=== PATIENT | female | born 1985 | race Caucasian/White ===

== ENCOUNTER 2017-05-21 10:58 | Day surgery (SDC) | payer SELFPAY, BC ==
[~2017-05-21 10:58] MED LIST: Acetaminophen/HYDROcodone 325-5 MG Tab PO PRN; BACITRACIN IRR SCH; Bupivacaine 0.25% 10 ML SDV INJECT ONE; Bupivacaine 0.25% 10 ML SDV ONE; Gentamicin 40 MG/ML 2 ML Vial ONE; Lactated Ringers 1,000 ML IV SCH; Lidocaine 2% 5 ML SDV ONE; Midazolam 1 MG/ML 2 ML SDV ONE; Propofol 200 MG/20 ML SDV ONE; SODIUM CHLORIDE 0.9% IRR SCH; ceFAZolin 1,000 MG VIAL ONE; ceFAZolin 2 GM in Premix Bag 1 BAG IV ONE; fentaNYL 100 MCG/2 ML SDV ONE
--- NOTE | 2017-05-21 12:02 | PCM.PREANE ---
Preanesthetic Assessment - Anesthesia/Transfusion/Family Hx Anesthesia History: Prior Anesthesia Without Reaction Family History of Anesthesia Reaction: No Transfusion History: No Prior Transfusion(s) Intubation History: Unknown - Review of Systems General: No Symptoms Pulmonary: No Symptoms Cardiovascular: No Symptoms Gastrointestinal: No Symptoms Neurological: No Symptoms Other: Reports: None - Physical Assessment O2 Sat by Pulse Oximetry: 100 Respiratory Rate: 16 Vital Signs: Last Vital Signs Temp 36.6 C 05/21/17 11:26 Pulse 66 05/21/17 11:26 Resp 16 05/21/17 11:26 BP 120/59 L 05/21/17 11:26 Pulse Ox 100 05/21/17 11:26 Height: 1.57 m Weight: 58.513 kg ASA Class: 2 Mental Status: Alert & Oriented x3 Airway Class: Mallampati = 2 Dentition: Reports: Normal Dentition Thyro-Mental Finger Breadths: 3 Mouth Opening Finger Breadths: 3 ROM/Head Extension: Full Lungs: Clear to Auscultation, Normal Respiratory Effort Cardiovascular: Regular Rate, Regular Rhythm - Lab Values: Laboratory Last Values Urine HCG, Qual NEGATIVE (NEGATIVE) 05/21/17 11:03 - Allergies Allergies/Adverse Reactions: Allergies Allergy/AdvReac Type Severity Reaction Status Date / Time No Known Allergies Allergy Verified 06/10/14 20:02 - Blood Blood Available: No - Anesthesia Plan Pre-Op Medication Ordered: None - Acknowledgements Anesthesia Type Planned: General Anesthesia Pt an Appropriate Candidate for the Planned Anesthesia: Yes Alternatives and Risks of Anesthesia Discussed w Pt/Guardian: Yes Pt/Guardian Understands and Agrees with Anesthesia Plan: Yes PreAnesthesia Questionnaire HEENT History: Reports: Other (See Below) Other HEENT History: wears glasses/contacts Cardiovascular History: Reports: Heart Murmur, Other (See Below) Other Cardiovascular History: benign murmur Genitourinary History: Reports: None 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 of neck cyst at age 1 ( thyro-glossal cyst ?)) Female Surgical History: Reports: D&C Endocrine Surgical History: Reports: Other (See Below) Other Endocrine Surgeries/Procedures: eliu sympathectomy for hyperhydrosis - SUBSTANCE USE Smoking Status *Q: Never Smoker Recreational Drug Use History: No - HOME MEDS Home Medications: Home Meds FLUoxetine HCl [Fluoxetine HCl] 40 mg PO DAILY 05/16/17 [History] - CURRENT (IN HOUSE) MEDS Current Meds: Current Medications Hydrocodone Bitart/Acetaminophen ([place] 325-5 Mg) 1 tab PO Q4H PRN PRN Reason: Pain Bacitracin 50,000 units/ (Sodium Chloride) 1,000 mls @ 71.99 mls/hr IRR ONETIME RAKESH PRN Reason: 1 UNITS/SEC Lactated Ringer's (Ringers, Lactated) 1,000 mls @ 125 mls/hr IV ASDIRECTED RAKESH Last Admin: 05/21/17 11:28 Dose: 125 mls/hr Discontinued Medications Bupivacaine HCl (Sensorcaine-Mpf 0.25%) 30 ml INJECT ONETIME ONE Stop: 05/21/17 09:01 Bupivacaine HCl (Sensorcaine-Mpf 0.25%) Confirm Administered Dose 20 ml .ROUTE .STK-MED ONE Stop: 05/21/17 07:29 Cefazolin Sodium (Ancef) 2,000 mg .XX ONETIME ONE Stop: 05/21/17 09:01 Fentanyl (Sublimaze) Confirm Administered Dose 100 mcg .ROUTE .STK-MED ONE Stop: 05/21/17 08:49 Fentanyl (Sublimaze) Confirm Administered Dose 100 mcg .ROUTE .STK-MED ONE Stop: 05/21/17 10:20 Gentamicin Sulfate (Gentamicin) 80 mg .XX ONETIME ONE Stop: 05/21/17 09:01 Cefazolin Sodium/Dextrose 2 gm (/ Premix) 50 mls @ 100 mls/hr IV ONETIME ONE Stop: 05/20/17 21:43 Lidocaine (Xylocaine-Mpf 2%) Confirm Administered Dose 5 ml .ROUTE .STK-MED ONE Stop: 05/21/17 08:49 Midazolam HCl (Versed 1 Mg/Ml) Confirm Administered Dose 2 mg .ROUTE .STK-MED ONE Stop: 05/21/17 08:49 Propofol (Diprivan 20 Ml) Confirm Administered Dose 400 mg .ROUTE .STK-MED ONE Stop: 05/21/17 08:49
[2017-05-21] MEDS ORDERED: Gentamicin 40 MG/ML 2 ML Vial ONE (12:34)
[2017-05-21] MEDS ORDERED: ceFAZolin 1 GM Vial ONE ×2 (12:34→12:41)
[2017-05-21] MEDS ORDERED: EPINEPHrine 1 MG/ML SDV ONE (12:35)
[2017-05-21] MEDS ORDERED: Bupivacaine 0.25% 10 ML SDV ONE (12:46)
[2017-05-21] MEDS ORDERED: Rocuronium 10 MG/ML 10 ML Syringe ONE (12:46)
[2017-05-21] MEDS ORDERED: Dexamethasone 4 MG/ML 5 ML MDV ONE (12:46)
[2017-05-21] MEDS ORDERED: diphenhydrAMINE 50 MG/ML SDV ONE (12:46)
[2017-05-21] MEDS ORDERED: Ondansetron 4 MG/2 ML SDV ONE (12:46)
[2017-05-21] MEDS ORDERED: Scopolamine 1.5 MG Transdermal Patch ONE (13:02)
[2017-05-21] MEDS ORDERED: HYDROmorphone 2 MG/ML Syringe ONE (13:14)
[2017-05-21] MEDS ORDERED: fentaNYL 100 MCG/2 ML SDV IVPUSH PRN (13:45)
--- NOTE | 2017-05-21 15:28 | PCM.POSTAN ---
POST ANESTHESIA ASSESSMENT - MENTAL STATUS Mental Status: Alert, Oriented - RESPIRATORY Respiratory Status: Respiratory Rate WNL, Airway Patent, O2 Saturation Stable - CARDIOVASCULAR CV Status: Pulse Rate WNL, Blood Pressure Stable - GASTROINTESTINAL GI Status: No Symptoms - PAIN Pain Score: 3 - POST OP HYDRATION Hydration Status: Adequate & Stable - OBSERVATIONS Free Text/Narrative:: no anesthesia problems
[2017-05-21 17:01] VITALS: BP 121/64
--- NOTE | 2017-05-21 20:11 | PCM.OPNOTE ---
- General Post-Op/Procedure Note Date of Surgery/Procedure: 05/21/17 Operative Procedure(s): bilateral silicone submuscular breast augmentation Pre Op Diagnosis: cosmetic Post-Op Diagnosis: Same Anesthesia Technique: Local, MAC Primary Surgeon: Amada Avila Loom Mechanic: Beatriz Tate Complications: None Condition: Good Free Text/Narrative:: Intake & Output 05/21/17 05/21/17 05/21/17 07:59 15:59 23:59 Intake Total 2100 Balance 2100
--- NOTE | 2017-05-29 20:45 | OR ---
SURGEON: VERÓNICA BOYER MD DATE OF PROCEDURE: 05/21/2017 PREOPERATIVE DIAGNOSIS: Cosmetic. POSTOPERATIVE DIAGNOSIS: Cosmetic. PROCEDURE: Bilateral silicone submuscular breast augmentation. ANESTHESIA: Local with general ET tube. PAYROLL HUMAN RESOURCES ASSISTANT: LILLIE Lamb. INDICATIONS: Ms. Mccormack is a 31-year-old female seen today in desire for bilateral breast augmentation. She decided on 445 mL silicone submuscular implants. Risks and benefits were discussed including but not limited to, bleeding, infection, damage to underlying or overlying structures, possible need for future interventions, and possible scarring. PROCEDURE IN DETAIL: After informed consent was obtained and placed on the chart, the patient was brought to the operating theater and laid in the supine position. After adequate local MAC anesthesia was obtained, the area was prepped and draped and a time-out was completed to confirm side and site. Attention was then paid to the inframammary fold incision marked at approximately the base width of the implant away from the nipple-areolar complex. This is approximately 5 cm taking care to stay lateral to the nipple- areolar complex. Once adequately marked, attention was paid using a 15 blade through the skin and subcutaneous tissues and then retraction using Bovie electrocautery to reach the lateral aspect of the pectoralis muscle. The inferior pectoralis muscle was then transected and the remainder of the pectoralis muscle was elevated. Once this was completed, the area was copiously irrigated and meticulous hemostasis was obtained. Epinephrine-soaked laps were then placed into the pocket and allowed to sit. While sitting, attention was paid to meticulous dissection on the opposite side in a symmetric fashion. Epi laps were placed over here and then we returned to the original right side to complete dissection. The epinephrine laps were removed and confirmed complete removal. Attention was then paid to meticulous hemostasis and 3-0 PDS sutures were used to secure the inframammary fold in lateral aspect of the margin of the internal pocket. Once this was completed, attention was then paid to copious irrigation with normal saline and then triple antibiotic solution. Once adequately irrigated, a Ramirez funnel was then used to place the Natrelle Inspira [id number] mL implants. IMPLANT INFORMATION: Serial number is [id number] Left and [id number] Right. Material number is [id number]. Brand is Natrelle Inspira implant. Once this symmetric procedure had been completed on both the right and left breast, the patient was sat up into the supine position and symmetry was appreciated. The patient was laid back down and deep 3-0 Monocryl stitches were used to close the fascia layer, 3-0 Monocryl stitches to close the dermis, and a running 4-0 subcuticular for the skin. Once adequately closed, the wounds were dressed with Steri-Strips. The patient tolerated the procedure well. All counts and needles were correct at the end of the case. FOLLOWUP INSTRUCTIONS: The patient will see us in clinic tomorrow or sooner if any problems, questions, or concerns. She was given a prescription for pain control and a muscle relaxer. She will call with any issues prior. HEGGTHE / ODALIS /[id number] MTDD
== END 2017-05-21 16:55 | disposition home or self-care (01) ==
LOC: MW.SDS 10:58
PROVIDERS: ATTEND Plastic Surgery
DX: Z41.1 Encounter for cosmetic surgery (principal); F41.9 Anxiety disorder, unspecified; F32.9 Major depressive disorder, single episode, unspecified; Z79.899 Other long term (current) drug therapy
CPT/HCPCS: 19325; 81025; A9270; C1789; J0171; J0690; J1100; J1170; J1200; J1580; J2250; J2405; J3010; J7120; 00402; J2704

== ENCOUNTER 2019-07-26 07:45 | Day surgery (SDC) | payer OTHER, BC ==
[2019-07-26 06:47] LABS: BLOOD UREA NITROGEN,BUN 15 mg/dL (7.0-18.0); CARBON DIOXIDE,CO2 28.1 mmol/L (21.0-32.0); CHLORIDE,CL 104 mmol/L (98-107); GLUCOSE RANDOM 147 mg/dL (74-106); POTASSIUM,K 3.6 mmol/L (3.5-5.1); SODIUM,NA 142 mmol/L (136-145)
[~2019-07-26 07:45] MED LIST changes: -Acetaminophen/HYDROcodone 325-5 MG Tab PO PRN; -BACITRACIN IRR SCH; -Bupivacaine 0.25% 10 ML SDV INJECT ONE; -Bupivacaine 0.25% 10 ML SDV ONE; -Gentamicin 40 MG/ML 2 ML Vial ONE; -Lactated Ringers 1,000 ML IV SCH; -Lidocaine 2% 5 ML SDV ONE; -Midazolam 1 MG/ML 2 ML SDV ONE; -Propofol 200 MG/20 ML SDV ONE; -SODIUM CHLORIDE 0.9% IRR SCH; +Scopolamine 1.5 MG Transdermal Patch TRDERM PRN; +Sodium Chloride 0.9% 10 ML SDV IV PRN; +Sodium Chloride 0.9% 10 ML Syringe FLUSH PRN; +Sodium Chloride 0.9% 2.5 ML Syringe FLUSH PRN; -ceFAZolin 1,000 MG VIAL ONE; -ceFAZolin 2 GM in Premix Bag 1 BAG IV ONE; -fentaNYL 100 MCG/2 ML SDV ONE
[2019-07-26] MEDS ORDERED: Methylene Blue 50 MG/10 ML Ampule ONE (07:46)
[2019-07-26] MEDS ORDERED: Bupivacaine 0.5% 30 ML SDV ONE (07:46)
[2019-07-26] MEDS ORDERED: Bupivacaine 0.25% 10 ML SDV ONE (07:46)
[2019-07-26] MEDS: Lactated Ringers 1,000 ML IV SCH ×2 (08:03→17:05)
[2019-07-26] MEDS ORDERED: Rocuronium 100 MG/10 ML Syringe ONE (08:08)
[2019-07-26] MEDS ORDERED: Ondansetron 4 MG/2 ML SDV ONE (08:08)
[2019-07-26] MEDS ORDERED: fentaNYL 250 MCG/5 ML SDV ONE (08:08)
[2019-07-26] MEDS ORDERED: Lidocaine 2% 5 ML SDV ONE (08:08)
[2019-07-26] MEDS ORDERED: Propofol 200 MG/20 ML SDV ONE (08:08)
[2019-07-26] MEDS ORDERED: Midazolam 1 MG/ML 2 ML SDV ONE (08:08)
[2019-07-26] MEDS ORDERED: Dexamethasone 4 MG/ML 5 ML MDV ONE (08:10)
[2019-07-26] MEDS ORDERED: Acetaminophen 1,000 MG in Premix Bag 1 BAG IV SCH (08:30)
--- NOTE | 2019-07-26 08:46 | PCM.PREANE ---
Preanesthetic Assessment - Anesthesia/Transfusion/Family Hx Anesthesia History: Prior Anesthesia Without Reaction (PONV) Family History of Anesthesia Reaction: No Transfusion History: No Prior Transfusion(s) Intubation History: Unknown - Review of Systems General: No Symptoms Pulmonary: No Symptoms Cardiovascular: No Symptoms Gastrointestinal: No Symptoms Neurological: No Symptoms Other: Reports: None - Physical Assessment NPO Status Date: 07/25/19 NPO Status Time: 23:00 Vital Signs: Last Vital Signs Temp 97.0 F 07/26/19 08:03 Pulse 63 07/26/19 08:03 Resp 16 07/26/19 08:03 BP 124/61 07/26/19 08:03 Pulse Ox 100 07/26/19 08:03 Height: 5 ft 2 in Weight: 63.503 kg ASA Class: 2 Mental Status: Alert & Oriented x3 Airway Class: Mallampati = 2 Dentition: Reports: Normal Dentition Thyro-Mental Finger Breadths: 3 Mouth Opening Finger Breadths: 3 ROM/Head Extension: Full Lungs: Clear to Auscultation, Normal Respiratory Effort Cardiovascular: Regular Rate, Regular Rhythm - Lab Values: Laboratory Last Values WBC 7.15 K/uL (4.0-11.0) 07/25/19 17:19 RBC 4.62 M/uL (4.30-5.90) 07/25/19 17:19 Hgb 13.6 g/dL (12.0-16.0) 07/25/19 17:19 Hct 40.6 % (36.0-46.0) 07/25/19 17:19 MCV 87.9 fL (80.0-98.0) 07/25/19 17:19 MCH 29.4 pg (27.0-32.0) 07/25/19 17:19 MCHC 33.5 g/dL (31.0-37.0) 07/25/19 17:19 RDW Std Deviation 44.6 fl (28.0-62.0) 07/25/19 17:19 RDW Coeff of Ulises 14 % (11.0-15.0) 07/25/19 17:19 Plt Count 241 K/uL (150-400) 07/25/19 17:19 MPV 11.20 fL (7.40-12.00) 07/25/19 17:19 Nucleated RBC % 0.0 /100WBC 07/25/19 17:19 Nucleated RBCs # 0 K/uL 07/25/19 17:19 Sodium 142 mmol/L (136-145) 07/25/19 17:19 Potassium 3.6 mmol/L (3.5-5.1) 07/25/19 17:19 Chloride 104 mmol/L (98-107) 07/25/19 17:19 Carbon Dioxide 28.1 mmol/L (21.0-32.0) 07/25/19 17:19 BUN 15 mg/dL (7.0-18.0) 07/25/19 17:19 Creatinine 0.8 mg/dL (0.6-1.0) 07/25/19 17:19 Est Cr Clr Drug Dosing 78.37 mL/min 07/25/19 17:19 Estimated GFR (MDRD) > 60.0 ml/min 07/25/19 17:19 Glucose 147 mg/dL (74-106) H 07/25/19 17:19 Calcium 8.7 mg/dL (8.5-10.1) 07/25/19 17:19 HCG, Qual NEGATIVE (NEG) 07/25/19 17:19 Blood Type A POSITIVE 07/25/19 17:19 Antibody Screen NEGATIVE 07/25/19 17:19 - Allergies Allergies/Adverse Reactions: Allergies Allergy/AdvReac Type Severity Reaction Status Date / Time No Known Allergies Allergy Verified 07/21/19 10:34 - Blood Blood Available: Yes - Acknowledgements Anesthesia Type Planned: General Anesthesia Pt an Appropriate Candidate for the Planned Anesthesia: Yes Alternatives and Risks of Anesthesia Discussed w Pt/Guardian: Yes Pt/Guardian Understands and Agrees with Anesthesia Plan: Yes PreAnesthesia Questionnaire HEENT History: Reports: Other (See Below) Other HEENT History: wears glasses/contacts Cardiovascular History: Reports: Heart Murmur Other Cardiovascular History: hx of benign murmur- Echo done in 2001, was cleared by Cardiology Respiratory History: Reports: None Gastrointestinal History: Reports: None Genitourinary History: Reports: Other (See Below) Other Genitourinary History: pelvic Organ Prolapse, urinary retention RECOOPERER History: Reports: Ectopic , LMP (Approximate): Other (See Below) (HCG - negative) Musculoskeletal History: Reports: Fracture Other Musculoskeletal History: hx of fx clavicle Neurological History: Reports: Other (See Below) Other Neuro History: hx of motion sickness Psychiatric History: Reports: Anxiety, Depression Endocrine/Metabolic History: Reports: None Hematologic History: Reports: None Immunologic History: Reports: None Oncologic (Cancer) History: Reports: None Dermatologic History: Reports: None - Infectious Disease History Infectious Disease History: Reports: None - Past Surgical History Female Surgical History: Reports: Breast Implant, D&C Musculoskeletal Surgical History: Reports: Other (See Below) Other Musculoskeletal Surgeries/Procedures:: right collar lumpectomy, Bilateral Sympathectomy for Hyper- Hydrosis - SUBSTANCE USE Smoking Status *Q: Never Smoker Recreational Drug Use History: No - HOME MEDS Home Medications: Home Meds FLUoxetine HCl [Fluoxetine HCl] 40 mg PO DAILY 05/16/17 [History] Modafinil [Provigil] 200 mg PO QAM 07/21/19 [History] - CURRENT (IN HOUSE) MEDS Current Meds: Current Medications Lactated Ringer's (Ringers, Lactated) 1,000 mls @ 100 mls/hr IV ASDIRECTED RAKESH Last Admin: 07/26/19 08:03 Dose: 100 mls/hr Scopolamine (Transderm-Scop) 1.5 mg TRDERM Q72H PRN PRN Reason: Nausea/Vomiting Sodium Chloride (Saline Flush) 10 ml FLUSH ASDIRECTED PRN PRN Reason: Keep Vein Open Sodium Chloride (Saline Flush) 2.5 ml FLUSH ASDIRECTED PRN PRN Reason: Keep Vein Open Sodium Chloride (Normal Saline) 10 ml IV ASDIRECTED PRN PRN Reason: IV Use Discontinued Medications Bupivacaine HCl (Sensorcaine-Mpf 0.25%) Confirm Administered Dose 20 ml .ROUTE .STK-MED ONE Stop: 07/26/19 07:47 Bupivacaine HCl (Marcaine 0.5%) Confirm Administered Dose 30 ml .ROUTE .STK-MED ONE Stop: 07/26/19 07:47 Dexamethasone (Dexamethasone) Confirm Administered Dose 20 mg .ROUTE .STK-MED ONE Stop: 07/26/19 08:11 Fentanyl (Sublimaze) Confirm Administered Dose 250 mcg .ROUTE .STK-MED ONE Stop: 07/26/19 08:09 Acetaminophen 1,000 mg/ Premix 100 mls @ 400 mls/hr IV ONETIME RAKESH Stop: 07/26/19 08:44 Acetaminophen (Ofirmev) Confirm Administered Dose 100 mls @ as directed .ROUTE .STK-MED ONE Stop: 07/26/19 08:16 Lidocaine (Xylocaine-Mpf 2%) Confirm Administered Dose 5 ml .ROUTE .STK-MED ONE Stop: 07/26/19 08:09 Methylene Blue (Provayblue) Confirm Administered Dose 50 mg .ROUTE .STK-MED ONE Stop: 07/26/19 07:47 Midazolam HCl (Versed 1 Mg/Ml) Confirm Administered Dose 2 mg .ROUTE .STK-MED ONE Stop: 07/26/19 08:09 Ondansetron HCl (Zofran) Confirm Administered Dose 4 mg .ROUTE .STK-MED ONE Stop: 07/26/19 08:09 Propofol (Diprivan 20 Ml) Confirm Administered Dose 200 mg .ROUTE .STK-MED ONE Stop: 07/26/19 08:09 Rocuronium Simpson (Zemuron) Confirm Administered Dose 100 mg .ROUTE .STK-MED ONE Stop: 07/26/19 08:09 Scopolamine (Transderm-Scop) 1.5 mg TRDERM .ONCE PRN PRN Reason: Post Op Nausea
[2019-07-26] MEDS ORDERED: Fluorescein 5 ML Vial ONE (08:59)
[2019-07-26] MEDS ORDERED: ceFAZolin 1 GM Vial ONE (09:26)
[2019-07-26] MEDS ORDERED: diphenhydrAMINE 50 MG/ML SDV ONE (09:31)
[2019-07-26] MEDS ORDERED: HYDROmorphone 2 MG/ML Syringe ONE (09:36)
[2019-07-26] MEDS ORDERED: Furosemide 40 MG/4 ML VIAL ONE (09:42)
[2019-07-26] MEDS ORDERED: Promethazine 12.5 MG Supp RECTAL PRN (09:56)
[2019-07-26] MEDS ORDERED: Atropine 0.1 MG/ML 10 ML Syringe IVPUSH PRN ×2 (09:57)
[2019-07-26] MEDS ORDERED: EPINEPHrine 1:10,000 1 MG/10 ML Syringe IVPUSH PRN (09:57)
[2019-07-26] MEDS ORDERED: 50% Dextrose in Water 50 ML Syringe IVPUSH PRN (09:57)
[2019-07-26] MEDS ORDERED: Naloxone 0.4 MG/ML Syringe IVPUSH PRN (09:57)
[2019-07-26] MEDS ORDERED: Ketorolac 30 MG/ML SDV ONE (10:33)
[2019-07-26] MEDS: Ketorolac 30 MG/ML SDV IVPUSH ONE ×2 (10:52→18:50)
[2019-07-26] MEDS ORDERED: Acetaminophen/oxyCODONE 325-5 MG Tab PO PRN (11:31)
[2019-07-26] MEDS ORDERED: Morphine 4 MG/ML Syringe IVPUSH PRN (11:31)
[2019-07-26] MEDS ORDERED: Ondansetron 4 MG/2 ML SDV IVPUSH PRN (11:31)
[2019-07-26] MEDS ORDERED: Promethazine 25 MG/ML SDV IM PRN (11:31)
--- NOTE | 2019-07-26 11:31 | PCM.OPNOTE ---
- General Post-Op/Procedure Note Date of Surgery/Procedure: 07/26/19 Operative Procedure(s): total vaginal hysterectomy, anterior colporrhaphy, culdoplasty, perineorrhaphy, cystoscopy Findings: 3rd degree uterine prolapse, 3rd degree cystocele, gaping introitus, normal appearing tubes and ovaries, on cystoscopy no evidence of trauma to the bladder mucosa, normal flow, bright green urine after iv fluoroscein from bilateral ureteral orifices. Pre Op Diagnosis: incomplete uterovaginal prolapse Post-Op Diagnosis: Same Anesthesia Technique: General ET Tube Primary Surgeon: Vanessa Cook Secondary Surgeon: Janett Wilder Anesthesia Provider: Juan Wheatley Social Work Job Titles: Ashlie Milan Pathology: uterus, vaginal mucosa Fluid Replacement, Intraop: 2,000 Output, Urine Amount: 45 EBL in mLs: 100 Drain/Tube Comments:: vaginal packing in place, townsend catheter Complications: None Known Condition: Good
[2019-07-26] MEDS: fentaNYL 100 MCG/2 ML SDV IVPUSH PRN ×2 (11:58→12:05)
--- NOTE | 2019-07-26 12:20 | PCM.POSTAN ---
POST ANESTHESIA ASSESSMENT - MENTAL STATUS Mental Status: Alert, Oriented - VITAL SIGNS Vital Signs: Last Vital Signs Temp 37.6 C 07/26/19 10:57 Pulse 65 07/26/19 12:14 Resp 12 07/26/19 12:14 BP 110/47 L 07/26/19 12:14 Pulse Ox 94 L 07/26/19 12:14 - RESPIRATORY Respiratory Status: Respiratory Rate WNL, Airway Patent, O2 Saturation Stable - CARDIOVASCULAR CV Status: Pulse Rate WNL, Blood Pressure Stable - GASTROINTESTINAL GI Status: No Symptoms - PAIN Pain Score: 2 - POST OP HYDRATION Hydration Status: Adequate & Stable - OBSERVATIONS Free Text/Narrative:: No anesthesia problems
--- NOTE | 2019-07-26 12:37 | OR ---
SURGEON: Vanessa Cook M.D. DATE OF PROCEDURE: 07/26/2019 PREOPERATIVE DIAGNOSIS: Incomplete uterovaginal prolapse. POSTOPERATIVE DIAGNOSIS: Incomplete uterovaginal prolapse. PROCEDURE: Total vaginal hysterectomy with anterior colporrhaphy, culdoplasty, perineorrhaphy, and cystoscopy. PRIMARY SURGEON: Vanessa Cook MD. EXTENSION SERVICE AGENT: Janett Wilder MD. ANESTHESIA: General endotracheal. FLUIDS: 2000 mL of crystalloid. ESTIMATED BLOOD LOSS: 100 mL. URINE OUTPUT: 45 mL. FINDINGS: Third-degree uterine prolapse, third-degree cystocele with gaping introitus. Upon cystoscopy, there was no evidence of any trauma to the bladder mucosa. There was copious flow of bright green urine from bilateral ureteral orifices after IV fluorescein was given. COMPLICATIONS: None known. DISPOSITION: Stable to recovery. PATHOLOGY SPECIMENS: Vaginal mucosa and uterus. BRIEF HISTORY: This is a 33-year-old female. She has had worsening symptoms of pelvic pressure, bulge from her vagina, difficulty retaining a tampon, and dyspareunia. Upon examination, she had a third-degree uterine prolapse, third-degree cystocele, gaping introitus. I recommended proceeding with a total vaginal hysterectomy with anterior colporrhaphy, perineorrhaphy, and cystoscopy with consideration of either a vaginal vault suspension or culdoplasty based on findings at the time of surgery. Surgical risks were discussed including bleeding; infection; injury to bowel, bladder, blood vessels, ureters, or other organs; risk of thromboembolic event, risk of recurrence of approximately 30%; risk of dyspareunia. Understanding all these risks, she does desire to proceed. DESCRIPTION OF PROCEDURE: With the patient in dorsal lithotomy position, under adequate general endotracheal anesthesia, the abdomen, perineum, and vagina were prepped with Betadine and draped in the usual fashion for vaginal surgery. SCDs were in place. Ramesh catheter had been placed and Ancef 1 g had been given IV. After an appropriate time-out was held, bimanual examination revealed third-degree uterine prolapse with third-degree cystocele. A weighted speculum was placed posteriorly. The patient was placed in Trendelenburg position. The anterior vaginal wall was retracted. The cervix was grasped with a Isaac tenaculum and circumscribed using electrocautery. The anterior cul-de-sac was entered sharply. A finger was placed into the peritoneal cavity. There was no evidence of any trauma. Therefore, the right angle retractor was placed and the anterior cul-de-sac or the posterior cul-de-sac was entered sharply and a Tyson-Auvard speculum was placed posteriorly. The uterosacral ligaments were then doubly clamped, cut, and ligated using a simple tie followed by Nicolas ligature of 2-0 Polysorb. The cardinal ligament complex was then doubly clamped, cut, and ligated followed by the utero-ovarian ligament being doubly clamped, cut, and ligated and retained for evaluation for hemostasis. The uterus was removed vaginally. The utero-ovarian pedicles were inspected and were hemostatic. The tubes and ovaries appeared normal. They were left in situ. These retained pedicles were then trimmed. The anterior vaginal wall was then grasped at the cuff with Allis clamps. Hydrodissection was performed and Metzenbaum scissors were used to incise the anterior vaginal mucosa in the midline up to approximately 3 cm from the urethral meatus. Sharp and blunt dissections were utilized to dissect the muscularis layer free from the overlying vaginal mucosa. The muscularis layer was then reapproximated in the midline using a running mattress suture of 0 Polysorb. The vagina was slightly trimmed and reapproximated using a running lock suture of 0 Polysorb. The uterosacral ligaments were then inspected. Cyndi clamps were placed at the point of the uterosacral ligaments, which were both palpable down to the level of the vagina. Therefore, I felt that a culdoplasty would be adequate. The retained uterosacral ligament ligatures were then utilized to incorporate the vaginal apices bilaterally along with the posterior cul-de-sac, and on the right and the left, they were tied in the midline. This being completed, a final inspection for hemostasis revealed a small area of bleeding below the uterosacral ligament on the vaginal cuff on the left side and a [id number] suture of 0 Polysorb was placed for hemostasis. This being hemostatic, the remaining vaginal cuff was closed with a continuation of the running lock suture of 0 Polysorb. Cystoscopy was then performed after IV Lasix and fluorescein had been given. There was excellent visualization of the bladder. There was no evidence of any trauma. Bilateral ureteral orifices were identified and there was copious flow of bright green urine. This being completed, the cystoscope was removed and the Ramesh catheter was replaced. Attention was then taken to the perineum where a triangular incision was made in the perineum with a scalpel. The skin was undermined using Metzenbaum scissors up to the level of the introitus and then a small triangular incision was made just above the introitus. This was then closed with a running lock suture for the vaginal mucosa out to the level of the introitus. This same suture of 2-0 Polysorb was then utilized to reapproximate the deep tissue and finally a running subcuticular suture of 3-0 Monocryl was utilized to reapproximate the skin. The vagina was then inspected, was hemostatic. Ramesh catheter had been replaced and the vaginal packing was placed. Final sponge, needle, and instrument counts were reported as correct. There were no known complications. The patient was transferred to recovery in good condition. ISAI JACOBO /[id number]
[2019-07-26] MEDS: Ketorolac 30 MG/ML SDV IVPUSH SCH ×3 (12:48→23:36)
[2019-07-26] MEDS: Acetaminophen/oxyCODONE 325-5 MG Tab PO PRN ×2 (16:30→20:16)
[2019-07-27] MEDS: Acetaminophen/oxyCODONE 325-5 MG Tab PO PRN ×2 (04:26→08:44)
[2019-07-27] MEDS: Ketorolac 30 MG/ML SDV IVPUSH SCH (05:40)
[2019-07-27 06:00] LABS: BLOOD UREA NITROGEN,BUN 16 mg/dL (7.0-18.0); CARBON DIOXIDE,CO2 30.1 mmol/L (21.0-32.0); CHLORIDE,CL 107 mmol/L (98-107); GLUCOSE RANDOM 108 mg/dL (74-106); POTASSIUM,K 4.2 mmol/L (3.5-5.1); SODIUM,NA 142 mmol/L (136-145)
--- NOTE | 2019-07-27 08:19 | PCM.SURGPN ---
- General Info Date of Service: 07/27/19 Date of Surgery/Procedure: 07/26/19 POD#: 1 Post-Op Diagnosis: Incomplete uterovaginal prolapse Functional Status: Reports: Pain Controlled, Tolerating Diet, Ambulating, Urinating, Other (packing removed this am. ) - Review of Systems General: Reports: No Symptoms HEENT: Reports: No Symptoms Pulmonary: Reports: No Symptoms Cardiovascular: Reports: No Symptoms Gastrointestinal: Reports: No Symptoms Genitourinary: Reports: No Symptoms Musculoskeletal: Reports: No Symptoms Skin: Reports: No Symptoms Neurological: Reports: No Symptoms Psychiatric: Reports: No Symptoms - Patient Data Vitals - Most Recent: Last Vital Signs Temp 36.8 C 07/27/19 04:59 Pulse 64 07/27/19 04:59 Resp 16 07/27/19 04:59 BP 103/57 L 07/27/19 04:59 Pulse Ox 97 07/27/19 04:59 Weight - Most Recent: 63.503 kg I&O - Last 24 Hours: Intake & Output 07/26/19 07/27/19 07/27/19 22:59 06:59 14:59 Intake Total 1150 Output Total 150 1125 Balance -150 25 Lab Results Last 24 Hrs: Laboratory Results - last 24 hr 07/27/19 07/27/19 Range/Units 05:37 05:37 WBC 9.89 (4.0-11.0) K/uL RBC 3.68 L (4.30-5.90) M/uL Hgb 10.6 L (12.0-16.0) g/dL Hct 32.8 L (36.0-46.0) % MCV 89.1 (80.0-98.0) fL MCH 28.8 (27.0-32.0) pg MCHC 32.3 (31.0-37.0) g/dL RDW Std Deviation 45.5 (28.0-62.0) fl RDW Coeff of Ulises 14 (11.0-15.0) % Plt Count 176 (150-400) K/uL MPV 11.20 (7.40-12.00) fL Neut % (Auto) 73.7 (48.0-80.0) % Lymph % (Auto) 18.2 (16.0-40.0) % [place] % (Auto) 7.5 (0.0-15.0) % Eos % (Auto) 0.4 (0.0-7.0) % Baso % (Auto) 0.2 (0.0-1.5) % Neut # (Auto) 7.3 H (1.4-5.7) K/uL Lymph # (Auto) 1.8 (0.6-2.4) K/uL [place] # (Auto) 0.7 (0.0-0.8) K/uL Eos # (Auto) 0.0 (0.0-0.7) K/uL Baso # (Auto) 0.0 (0.0-0.1) K/uL Nucleated RBC % 0.0 /100WBC Nucleated RBCs # 0 K/uL Sodium 142 (136-145) mmol/L Potassium 4.2 (3.5-5.1) mmol/L Chloride 107 (98-107) mmol/L Carbon Dioxide 30.1 (21.0-32.0) mmol/L BUN 16 (7.0-18.0) mg/dL Creatinine 0.9 (0.6-1.0) mg/dL Est Cr Clr Drug Dosing 69.66 mL/min Estimated GFR (MDRD) > 60.0 ml/min Glucose 108 H (74-106) mg/dL Calcium 8.0 L (8.5-10.1) mg/dL Med Orders - Current: Current Medications Atropine Sulfate (Atropine 0.1 Mg/Ml) 0.5 mg IVPUSH ASDIRECTED PRN PRN Reason: Hypo-perfusion Atropine Sulfate (Atropine 0.1 Mg/Ml) 1 mg IVPUSH ASDIRECTED PRN PRN Reason: Hypo-Perfusion Dextrose/Water (Dextrose 50% In Water) 50 ml IVPUSH ASDIRECTED PRN PRN Reason: Hypoglycemia Epinephrine HCl (Epinephrine 1:10,000) 1 mg IVPUSH ASDIRECTED PRN PRN Reason: ACLS Guidelines Fentanyl (Sublimaze) 50 - 100 mcg IVPUSH Q5M PRN PRN Reason: Pain Last Admin: 07/26/19 12:05 Dose: 50 mcg Fluoxetine HCl (Prozac) 40 mg PO DAILY RAKESH Lactated Ringer's (Ringers, Lactated) 1,000 mls @ 100 mls/hr IV ASDIRECTED RAKESH Last Admin: 07/26/19 17:05 Dose: 100 mls/hr Ketorolac Tromethamine (Toradol) 30 mg IVPUSH Q6H [facility] [place] Stop: 07/31/19 11:31 Last Admin: 07/27/19 05:40 Dose: 30 mg Modafinil (Provigil) 200 mg PO QAM [facility] [place] Morphine Sulfate (Morphine) 4 mg IVPUSH Q2H PRN PRN Reason: Pain (severe 7-10) Last Admin: 07/26/19 12:52 Dose: 4 mg Naloxone HCl (Narcan) 0.1 mg IVPUSH ASDIRECTED PRN PRN Reason: Respiratory Depression Ondansetron HCl (Zofran) 4 mg IVPUSH Q6H PRN PRN Reason: Nausea/Vomiting Oxycodone/Acetaminophen (Percocet 325-5 Mg) 1 tab PO Q4H PRN PRN Reason: Pain (moderate 4-6) Oxycodone/Acetaminophen (Percocet 325-5 Mg) 2 tab PO Q4H PRN PRN Reason: Pain (moderate 4-6) Last Admin: 07/27/19 04:26 Dose: 2 tab Promethazine HCl (Phenadoz) 12.5 mg RECTAL ONETIME PRN PRN Reason: Nausea Promethazine HCl (Phenergan) 25 mg IM Q6H PRN PRN Reason: Nausea/Vomiting Scopolamine (Transderm-Scop) 1.5 mg TRDERM Q72H PRN PRN Reason: Nausea/Vomiting Sodium Chloride (Saline Flush) 10 ml FLUSH ASDIRECTED PRN PRN Reason: Keep Vein Open Sodium Chloride (Saline Flush) 2.5 ml FLUSH ASDIRECTED PRN PRN Reason: Keep Vein Open Sodium Chloride (Normal Saline) 10 ml IV ASDIRECTED PRN PRN Reason: IV Use Discontinued Medications Bupivacaine HCl (Sensorcaine-Mpf 0.25%) Confirm Administered Dose 20 ml .ROUTE .STK-MED ONE Stop: 07/26/19 07:47 Bupivacaine HCl (Marcaine 0.5%) Confirm Administered Dose 30 ml .ROUTE .STK-MED ONE Stop: 07/26/19 07:47 Cefazolin Sodium (Ancef) Confirm Administered Dose 2 gm .ROUTE .STK-MED ONE Stop: 07/26/19 09:27 Dexamethasone (Dexamethasone) Confirm Administered Dose 20 mg .ROUTE .STK-MED ONE Stop: 07/26/19 08:11 Diphenhydramine HCl (Benadryl) Confirm Administered Dose 50 mg .ROUTE .STK-MED ONE Stop: 07/26/19 09:32 Fentanyl (Sublimaze) Confirm Administered Dose 250 mcg .ROUTE .STK-MED ONE Stop: 07/26/19 08:09 Fluorescein Sodium (Ak-Fluor) Confirm Administered Dose 5 ml .ROUTE .STK-MED ONE Stop: 07/26/19 09:00 Furosemide (Lasix) Confirm Administered Dose 40 mg .ROUTE .ST-MED ONE Stop: 07/26/19 09:43 Hydromorphone HCl (Dilaudid) Confirm Administered Dose 2 mg .ROUTE .ST-MED ONE Stop: 07/26/19 09:37 Acetaminophen 1,000 mg/ Premix 100 mls @ 400 mls/hr IV ONETIME RAKESH Stop: 07/26/19 08:44 Last Admin: 07/26/19 08:15 Dose: 400 mls/hr Acetaminophen (Ofirmev) Confirm Administered Dose 100 mls @ as directed .ROUTE .ST-MED ONE Stop: 07/26/19 08:16 Ketorolac Tromethamine (Toradol) Confirm Administered Dose 30 mg .ROUTE .ST- MED ONE Stop: 07/26/19 10:34 Ketorolac Tromethamine (Toradol) 30 mg IVPUSH ONETIME ONE Stop: 07/26/19 11:32 Last Admin: 07/26/19 18:50 Dose: Not Given Lidocaine (Xylocaine-Mpf 2%) Confirm Administered Dose 5 ml .ROUTE .ST-MED ONE Stop: 07/26/19 08:09 Methylene Blue (Provayblue) Confirm Administered Dose 50 mg .ROUTE .ST-MED ONE Stop: 07/26/19 07:47 Midazolam HCl (Versed 1 Mg/Ml) Confirm Administered Dose 2 mg .ROUTE .ST-MED ONE Stop: 07/26/19 08:09 Ondansetron HCl (Zofran) Confirm Administered Dose 4 mg .ROUTE .STK-MED ONE Stop: 07/26/19 08:09 Propofol (Diprivan 20 Ml) Confirm Administered Dose 200 mg .ROUTE .STK-MED ONE Stop: 07/26/19 08:09 Rocuronium [place] (Zemuron) Confirm Administered Dose 100 mg .ROUTE .STK-MED ONE Stop: 07/26/19 08:09 Scopolamine (Transderm-Scop) 1.5 mg TRDERM .ONCE PRN PRN Reason: Post Op Nausea - Exam General: Alert, Oriented Lungs: Clear to Auscultation, Normal Respiratory Effort Cardiovascular: Regular Rate, Regular Rhythm GI/Abdominal Exam: Normal Bowel Sounds, Soft, Non-Tender, No Organomegaly, No Distention, No Mass Extremities: Normal Inspection, Non-Tender, No Pedal Edema Skin: Warm, Dry, Intact Neurological: No New Focal Deficit Psy/Mental Status: Alert, Normal Affect, Normal Mood Sepsis Event Note - Evaluation Sepsis Screening Result: No Definite Risk - Focused Exam Vital Signs: Vital Signs Temp Pulse Resp BP Pulse Ox 07/27/19 04:59 36.8 C 64 16 103/57 L 97 07/26/19 23:55 36.9 C 64 15 104/48 L 96 Date Exam was Performed: 07/27/19 Time Exam was Performed: 08:17 - Problem List & Annotations (1) Incomplete uterovaginal prolapse SNOMED Code(s): 488996363 Code(s): N81.2 - INCOMPLETE UTEROVAGINAL PROLAPSE Status: Acute Current Visit: Yes - Problem List Review Problem List Initiated/Reviewed/Updated: Yes - My Orders Last 24 Hours: Active Orders 24 hr Category Date Time Status Patient Status [ADT] Routine ADT 07/26/19 11:31 Active Antiembolic Devices [RC] PER UNIT ROUTINE Care 07/26/19 11:32 Active Blood Glucose Check, Bedside [RC] PRN Care 07/26/19 09:57 Active Notify Provider Intake and Out [RC] ASDIRECTED Care 07/26/19 11:31 Active Notify Provider Vital Signs [RC] ASDIRECTED Care 07/26/19 09:57 Active Notify Provider Vital Signs [RC] ASDIRECTED Care 07/26/19 11:31 Active Oxygen Therapy [RC] ASDIRECTED Care 07/26/19 11:31 Active RT Incentive Spirometry [RC] Q2HWA Care 07/26/19 11:31 Active Ready for Discharge [RC] PER UNIT ROUTINE Care 07/27/19 08:17 Ordered Up With Assistance [RC] PER UNIT ROUTINE Care 07/26/19 11:31 Active Up ad Liliya [RC] PER UNIT ROUTINE Care 07/26/19 11:31 Active Urinary Catheter Removal [RC] Per Unit Routine Care 07/26/19 11:31 Active Regular Diet [DIET] Diet 07/26/19 Dinner Active Acetaminophen/oxyCODONE [Percocet 325-5 MG] Med 07/26/19 11:31 Active 1 tab PO Q4H PRN Acetaminophen/oxyCODONE [Percocet 325-5 MG] Med 07/26/19 11:31 Active 2 tab PO Q4H PRN Atropine [Atropine 0.1 MG/ML] Med 07/26/19 09:57 Active 0.5 mg IVPUSH ASDIRECTED PRN Atropine [Atropine 0.1 MG/ML] Med 07/26/19 09:57 Active 1 mg IVPUSH ASDIRECTED PRN Dextrose 50% in Water Med 07/26/19 09:57 Active 50 ml IVPUSH ASDIRECTED PRN EPINEPHrine [EPINEPHrine 1:10,000] Med 07/26/19 09:57 Active 1 mg IVPUSH ASDIRECTED PRN FLUoxetine [PROzac] Med 07/27/19 09:00 Active 40 mg PO DAILY Ketorolac [Toradol] Med 07/26/19 11:45 Active 30 mg IVPUSH Q6H Morphine Med 07/26/19 11:31 Active 4 mg IVPUSH Q2H PRN Naloxone [Narcan] Med 07/26/19 09:57 Active 0.1 mg IVPUSH ASDIRECTED PRN Ondansetron [Zofran] Med 07/26/19 11:31 Active 4 mg IVPUSH Q6H PRN Promethazine [Phenadoz] Med 07/26/19 09:56 Active 12.5 mg RECTAL ONETIME PRN Promethazine [Phenergan] Med 07/26/19 11:31 Active 25 mg IM Q6H PRN fentaNYL [Sublimaze] Med 07/26/19 09:57 Active 50 - 100 mcg IVPUSH Q5M PRN modafiniL [Provigil] Med 07/27/19 09:00 Active 200 mg PO QAM Peripheral IV Discontinue [OM.PC] Routine Oth 07/26/19 11:31 Ordered Remove Vaginal Packing [OM.PC] Per Unit Routine Oth 02/17/20 11:32 Ordered Sequential Compression Device [OM.PC] Per Unit Routine Oth 07/26/19 11:31 Ordered Resuscitation Status Routine Resus Stat 07/26/19 11:31 Ordered Medication Orders Atropine Sulfate (Atropine 0.1 Mg/Ml) 0.5 mg IVPUSH ASDIRECTED PRN PRN Reason: Hypo-perfusion Atropine Sulfate (Atropine 0.1 Mg/Ml) 1 mg IVPUSH ASDIRECTED PRN PRN Reason: Hypo-Perfusion Dextrose/Water (Dextrose 50% In Water) 50 ml IVPUSH ASDIRECTED PRN PRN Reason: Hypoglycemia Epinephrine HCl (Epinephrine 1:10,000) 1 mg IVPUSH ASDIRECTED PRN PRN Reason: ACLS Guidelines Fentanyl (Sublimaze) 50 - 100 mcg IVPUSH Q5M PRN PRN Reason: Pain Last Admin: 07/26/19 12:05 Dose: 50 mcg Admin: 07/26/19 11:58 Dose: 50 mcg Fluoxetine HCl (Prozac) 40 mg PO DAILY [facility] [place] Lactated Ringer's (Ringers, Lactated) 1,000 mls @ 100 mls/hr IV ASDIRECTED [facility] [place] Last Admin: 07/26/19 17:05 Dose: 100 mls/hr Infusion: 07/26/19 17:05 Dose: 100 mls/hr Admin: 07/26/19 08:03 Dose: 100 mls/hr Ketorolac Tromethamine (Toradol) 30 mg IVPUSH Q6H [facility] [place] Stop: 07/31/19 11:31 Last Admin: 07/27/19 05:40 Dose: 30 mg Admin: 07/26/19 23:36 Dose: 30 mg Admin: 07/26/19 17:53 Dose: 30 mg Admin: 07/26/19 12:48 Dose: Not Given Modafinil (Provigil) 200 mg PO QAM [facility] [place] Morphine Sulfate (Morphine) 4 mg IVPUSH Q2H PRN PRN Reason: Pain (severe 7-10) Last Admin: 07/26/19 12:52 Dose: 4 mg Naloxone HCl (Narcan) 0.1 mg IVPUSH ASDIRECTED PRN PRN Reason: Respiratory Depression Ondansetron HCl (Zofran) 4 mg IVPUSH Q6H PRN PRN Reason: Nausea/Vomiting Oxycodone/Acetaminophen (Percocet 325-5 Mg) 1 tab PO Q4H PRN PRN Reason: Pain (moderate 4-6) Oxycodone/Acetaminophen (Percocet 325-5 Mg) 2 tab PO Q4H PRN PRN Reason: Pain (moderate 4-6) Last Admin: 07/27/19 04:26 Dose: 2 tab Admin: 07/26/19 20:16 Dose: 2 tab Admin: 07/26/19 16:30 Dose: 2 tab Promethazine HCl (Phenadoz) 12.5 mg RECTAL ONETIME PRN PRN Reason: Nausea Promethazine HCl (Phenergan) 25 mg IM Q6H PRN PRN Reason: Nausea/Vomiting Scopolamine (Transderm-Scop) 1.5 mg TRDERM Q72H PRN PRN Reason: Nausea/Vomiting Sodium Chloride (Saline Flush) 10 ml FLUSH ASDIRECTED PRN PRN Reason: Keep Vein Open Sodium Chloride (Saline Flush) 2.5 ml FLUSH ASDIRECTED PRN PRN Reason: Keep Vein Open Sodium Chloride (Normal Saline) 10 ml IV ASDIRECTED PRN PRN Reason: IV Use - Assessment Assessment (Free Text/Narrative):: POD#1 after TVH, anterior colporrhaphy and culdoplasty with perineorrhaphy. Stable, pain is well controlled, tolerating regular diet, has voided, would like to go home. - Plan Plan (Free Text/Narrative):: Discharge instructions reviewed, dismiss to home.
[2019-07-27 08:30] VITALS: BP 104/54; PULSE 58
[2019-07-27] MEDS ORDERED: FLUoxetine 20 MG Cap PO SCH (09:00)
[2019-07-27] MEDS ORDERED: Modafinil 100 MG Tab PO SCH (09:00)
--- NOTE | 2019-07-27 10:04 | PCM48HPAN ---
Post Anesthesia Note - EVALUATION WITHIN 48HRS OF ANESTHETIC Vital Signs in Normal Range: Yes Patient Participated in Evaluation: Yes Respiratory Function Stable: Yes Airway Patent: Yes Cardiovascular Function Stable: Yes Hydration Status Stable: Yes Pain Control Satisfactory: Yes Nausea and Vomiting Control Satisfactory: Yes Mental Status Recovered: Yes Vital Signs: Last Vital Signs Temp 36.9 C 07/27/19 08:17 Pulse 58 L 07/27/19 08:17 Resp 16 07/27/19 08:17 BP 104/54 L 07/27/19 08:17 Pulse Ox 100 07/27/19 08:17 - COMMENTS/OBSERVATIONS Free Text/Narrative:: Ready for discharge.
== END 2019-07-27 09:02 | disposition home or self-care (01) ==
LOC: MW.SDS 07:45 → MW.OB 12:27 → MW.SDS 07-27 09:02
PROVIDERS: ATTEND Obstetrics & Gynecology
DX: N81.3 Complete uterovaginal prolapse (principal); N72 Inflammatory disease of cervix uteri; R11.0 Nausea; F41.9 Anxiety disorder, unspecified; F32.9 Major depressive disorder, single episode, unspecified; Z97.5 Presence of (intrauterine) contraceptive device; Z79.899 Other long term (current) drug therapy
CPT/HCPCS: 36415; 57240; 58270; 80048; 84703; 85025; 85027; 86850; 86900; 86901; 88307; A9270; J0131; J0690; J1100; J1170; J1200; J1885; J1940; J2001; J2250; J2270; J2405; J2704; J3010; J3490; J7120